=== PATIENT | female | born 1940 | race Caucasian/White ===

== ENCOUNTER 2021-01-11 15:22 | Inpatient (IN) | payer BC ==
[~2021-01-11] VITALS: Ht 162.6 cm; Wt 78.0 kg
[2021-01-11] MEDS ORDERED: SODIUM CHLORIDE 0.9% 1000ML BAG (SEPSIS BOLUS) IV ONE (15:45)
[2021-01-11] MEDS ORDERED: CEFTRIAXONE 1 G PREMIX 50 ML IV ONE (15:45)
[2021-01-11] MEDS ORDERED: AZITHROMYCIN 500MG/250ML 250 ML IV ONE (15:45)
[2021-01-11 16:21] LABS: BASOPHILS % 0.3 % (0.0-2.0); HEMATOCRIT. 43.6 % (36.0-48.0); HEMOGLOBIN. 14.7 g/dL (12.0-16.0); LYMPHOCYTES % 10.9 % (20.0-50.0); MEAN CORPUSCULAR HEMOGLOBIN 29.3 pg (28.0-32.0); MEAN CORPUSCULAR VOLUME 86.9 fL (81.0-99.0); MEAN PLATELET VOLUME 8.5 fl (7.4-10.4); MONOCYTES % 3.3 % (2.0-8.0); NEUTROPHILS % 85.5 % (40.0-76.0); PLATELET 249 x1000/uL (130-400); RED BLOOD CELL COUNT 5.02 mill/uL (4.2-5.4); RED CELL DISTRIBUTION WIDTH 14.6 % (11.6-14.6)
[2021-01-11 16:41] LABS: CHLORIDE 104 mEq/L (98-107)
[2021-01-11] MEDS ORDERED: DEXAMETHASONE 10 MG/ML VIAL IV ONE (18:15)
[2021-01-11] MEDS ORDERED: ONDANSETRON HCL 4MG/2ML INJ IV PRN (19:15)
[2021-01-11] MEDS ORDERED: IPRATROPIUM/ALBUTEROL 0.5-3(2.5)MG/3ML NEB HHN PRN (19:15)
[2021-01-11] MEDS ORDERED: HYDROCODONE/ACETAMINOPHEN 5/325MG TABLET PO PRN (19:15)
[2021-01-11] MEDS ORDERED: ENOXAPARIN 40MG/0.4ML SYR SUBCUT SCH (20:00)
[2021-01-11 20:20] VITALS: BP 112/58
[2021-01-11 20:33] LABS: CLARITY URINE CLEAR (CLEAR); COLOR URINE YELLOW (YELLOW); KETONES URINE NEGATIVE (NEGATIVE); LEUKOCYTE ESTERASE URINE NEGATIVE (NEGATIVE); NITRITE URINE NEGATIVE (NEGATIVE); OCCULT BLOOD URINE NEGATIVE (NEGATIVE); PH URINE 5.5 (4.5-8.0); PROTEIN URINE TRACE (NEGATIVE); UROBILINOGEN URINE 0.2 E.U./dL (0.2-1.0)
[2021-01-11] MEDS: GUAIFENESIN 200MG/10ML SUGAR FREE UDC PO PRN (22:24)
[2021-01-12] VITALS: BP 118/62
[2021-01-12] MEDS ORDERED: APIX5TAB PO (01:38)
[2021-01-12] MEDS ORDERED: LORA2ORA5 PO (01:38)
[2021-01-12 03:59] VITALS: BP 128/66
[2021-01-12] MEDS: GUAIFENESIN 200MG/10ML SUGAR FREE UDC PO PRN (05:22)
[2021-01-12 07:21] LABS: BASOPHILS % 0.1 % (0.0-2.0); HEMATOCRIT. 42.2 % (36.0-48.0); HEMOGLOBIN. 14.1 g/dL (12.0-16.0); LYMPHOCYTES % 9.5 % (20.0-50.0); MEAN CORPUSCULAR HEMOGLOBIN 29.4 pg (28.0-32.0); MEAN CORPUSCULAR VOLUME 87.9 fL (81.0-99.0); MEAN PLATELET VOLUME 8.8 fl (7.4-10.4); NEUTROPHILS % 87.4 % (40.0-76.0); PLATELET 271 x1000/uL (130-400); RED CELL DISTRIBUTION WIDTH 14.8 % (11.6-14.6)
[2021-01-12 07:49] LABS: CHLORIDE 113 mEq/L (98-107)
[2021-01-12 08:00] VITALS: BP 121/65
[2021-01-12] MEDS: DEXAMETHASONE 10 MG/ML VIAL IV SCH (09:19)
[2021-01-12] MEDS ORDERED: NALOXONE HCL 0.4MG/ML VIAL IV PRN (11:00)
[2021-01-12 12:00] VITALS: BP 113/54
[2021-01-12] MEDS: ENOXAPARIN 80MG/0.8ML SYR SUBCUT SCH ×2 (13:34→20:16)
[2021-01-12] MEDS: BENZONATATE 100MG CAPSULE PO PRN ×2 (13:35→21:38)
[2021-01-12] MEDS: ALBUTEROL 6.7GM HFA INHALER ORI PRN (13:35)
[2021-01-12] MEDS: CEFTRIAXONE 1,000 MG in DEXTROSE 5% WATER 50 ML IV SCH (13:35)
[2021-01-12] MEDS: AZITHROMYCIN 500 MG in DEXT 5% WATER 250 ML IV SCH (14:06)
[2021-01-12 16:00] VITALS: BP 121/65
[2021-01-12] MEDS ORDERED: CEFTRIAXONE 1,000 MG in DEXTROSE 5% WATER 50 ML IV SCH (17:00)
[2021-01-12] MEDS ORDERED: AZITHROMYCIN 500 MG in DEXT 5% WATER 250 ML IV SCH (18:00)
[2021-01-12 20:00] VITALS: BP 117/61
[2021-01-12] MEDS: GUAIFENESIN 600MG ER TABLET PO SCH (20:16)
[2021-01-13] VITALS: BP 111/58
[2021-01-13 04:00] VITALS: BP 110/60
[2021-01-13 06:14] LABS: HEMOGLOBIN. 13.4 g/dL (12.0-16.0); LYMPHOCYTES % 7.5 % (20.0-50.0); MEAN CORPUSCULAR HEMOGLOBIN 29.2 pg (28.0-32.0); MEAN CORPUSCULAR VOLUME 87.2 fL (81.0-99.0); MEAN PLATELET VOLUME 8.8 fl (7.4-10.4); MONOCYTES % 4.8 % (2.0-8.0); NEUTROPHILS % 87.7 % (40.0-76.0); PLATELET 329 x1000/uL (130-400); RED BLOOD CELL COUNT 4.58 mill/uL (4.2-5.4); RED CELL DISTRIBUTION WIDTH 14.8 % (11.6-14.6)
[2021-01-13 06:18] LABS: INR 1.2; PROTHROMBIN TIME 12.4 sec (9.6-11.0)
[2021-01-13 06:39] LABS: CHLORIDE 113 mEq/L (98-107)
[2021-01-13 08:00] VITALS: BP 121/61
[2021-01-13] MEDS: GUAIFENESIN 600MG ER TABLET PO SCH ×2 (08:16→20:49)
[2021-01-13] MEDS: ENOXAPARIN 80MG/0.8ML SYR SUBCUT SCH ×2 (08:16→20:49)
[2021-01-13] MEDS: BENZONATATE 100MG CAPSULE PO PRN (08:17)
[2021-01-13] MEDS: DEXAMETHASONE 10 MG/ML VIAL IV SCH (08:17)
[2021-01-13 12:00] VITALS: BP 120/64
[2021-01-13] MEDS: CEFTRIAXONE 1,000 MG in DEXTROSE 5% WATER 50 ML IV SCH (13:11)
[2021-01-13] MEDS: AZITHROMYCIN 500 MG in DEXT 5% WATER 250 ML IV SCH (14:20)
[2021-01-13 16:00] VITALS: BP 129/64
[2021-01-13 20:00] VITALS: BP 128/61
[2021-01-14] VITALS: BP 133/52
[2021-01-14 04:00] VITALS: BP 134/58
[2021-01-14 07:18] LABS: BASOPHILS % 0.1 % (0.0-2.0); HEMATOCRIT. 40.4 % (36.0-48.0); HEMOGLOBIN. 13.5 g/dL (12.0-16.0); LYMPHOCYTES % 9.4 % (20.0-50.0); MEAN CORPUSCULAR HEMOGLOBIN 29.2 pg (28.0-32.0); MEAN CORPUSCULAR VOLUME 87.3 fL (81.0-99.0); MEAN PLATELET VOLUME 9.4 fl (7.4-10.4); MONOCYTES % 6.5 % (2.0-8.0); PLATELET 430 x1000/uL (130-400); RED BLOOD CELL COUNT 4.62 mill/uL (4.2-5.4); RED CELL DISTRIBUTION WIDTH 14.9 % (11.6-14.6)
[2021-01-14 07:33] LABS: CHLORIDE 112 mEq/L (98-107)
[2021-01-14 07:41] LABS: LDL CHOLESTEROL 96 mg/dL (5-100)
[2021-01-14 07:43] LABS: HDL CHOLESTEROL 34 mg/dL (40-59)
[2021-01-14 08:00] VITALS: BP 128/67
[2021-01-14] MEDS: ENOXAPARIN 80MG/0.8ML SYR SUBCUT SCH ×2 (08:27→21:20)
[2021-01-14] MEDS: GUAIFENESIN 600MG ER TABLET PO SCH ×2 (08:27→21:00)
[2021-01-14] MEDS: DEXAMETHASONE 10 MG/ML VIAL IV SCH (08:27)
[2021-01-14 12:00] VITALS: BP 158/56
[2021-01-14] MEDS: CEFTRIAXONE 1,000 MG in DEXTROSE 5% WATER 50 ML IV SCH (12:05)
[2021-01-14] MEDS: AZITHROMYCIN 500 MG in DEXT 5% WATER 250 ML IV SCH (13:12)
[2021-01-14 16:00] VITALS: BP 154/64
[2021-01-14] MEDS: LORAZEPAM 0.5MG TABLET PO PRN (18:26)
[2021-01-14 20:00] VITALS: BP 130/62
[2021-01-15] VITALS: BP 126/58
[2021-01-15] MEDS: LORAZEPAM 0.5MG TABLET PO PRN ×2 (00:50→11:08)
[2021-01-15 04:00] VITALS: BP 128/64
[2021-01-15 06:53] LABS: BASOPHILS % 0.1 % (0.0-2.0); EOSINOPHILS % 0.1 % (0.0-5.0); HEMATOCRIT. 40.5 % (36.0-48.0); HEMOGLOBIN. 13.6 g/dL (12.0-16.0); LYMPHOCYTES % 13.4 % (20.0-50.0); MEAN CORPUSCULAR HEMOGLOBIN 29.1 pg (28.0-32.0); MEAN CORPUSCULAR VOLUME 86.7 fL (81.0-99.0); MEAN PLATELET VOLUME 8.9 fl (7.4-10.4); MONOCYTES % 5.5 % (2.0-8.0); NEUTROPHILS % 80.9 % (40.0-76.0); PLATELET 480 x1000/uL (130-400); RED BLOOD CELL COUNT 4.67 mill/uL (4.2-5.4); RED CELL DISTRIBUTION WIDTH 14.4 % (11.6-14.6)
[2021-01-15 07:02] LABS: CHLORIDE 112 mEq/L (98-107)
[2021-01-15 08:00] VITALS: BP 121/68
[2021-01-15] MEDS: DEXAMETHASONE 10 MG/ML VIAL IV SCH (08:02)
[2021-01-15] MEDS: ENOXAPARIN 80MG/0.8ML SYR SUBCUT SCH ×2 (08:03→20:11)
[2021-01-15] MEDS: BENZONATATE 100MG CAPSULE PO PRN (08:08)
[2021-01-15] MEDS: GUAIFENESIN 600MG ER TABLET PO SCH ×2 (09:25→20:11)
[2021-01-15 12:00] VITALS: BP 109/77
[2021-01-15] MEDS: CEFTRIAXONE 1,000 MG in DEXTROSE 5% WATER 50 ML IV SCH (13:03)
[2021-01-15] MEDS: AZITHROMYCIN 500 MG in DEXT 5% WATER 250 ML IV SCH (14:04)
[2021-01-15 16:00] VITALS: BP 126/80
[2021-01-15 20:03] VITALS: BP 120/78
[2021-01-16] VITALS: BP 130/70
[2021-01-16] MEDS: ALBUTEROL 6.7GM HFA INHALER ORI PRN ×2 (04:04→14:56)
[2021-01-16 08:00] VITALS: BP 129/67
[2021-01-16] MEDS: GUAIFENESIN 600MG ER TABLET PO SCH ×2 (08:59→20:37)
[2021-01-16] MEDS: ENOXAPARIN 80MG/0.8ML SYR SUBCUT SCH ×2 (09:00→20:37)
[2021-01-16] MEDS: DEXAMETHASONE 10 MG/ML VIAL IV SCH (09:09)
[2021-01-16 12:00] VITALS: BP 133/76
[2021-01-16] MEDS: CEFTRIAXONE 1,000 MG in DEXTROSE 5% WATER 50 ML IV SCH (14:50)
[2021-01-16 15:46] VITALS: BP 123/57
[2021-01-16 19:43] VITALS: BP 116/40
[2021-01-17] VITALS: BP 129/66
[2021-01-17 04:00] VITALS: BP 136/60
[2021-01-17 08:00] VITALS: BP 136/67
[2021-01-17] MEDS: DOCUSATE SODIUM 100MG CAPSULE PO PRN (08:26)
[2021-01-17] MEDS: GUAIFENESIN 600MG ER TABLET PO SCH ×2 (08:26→21:07)
[2021-01-17] MEDS: DEXAMETHASONE 10 MG/ML VIAL IV SCH (08:26)
[2021-01-17] MEDS: BENZONATATE 100MG CAPSULE PO PRN (08:27)
[2021-01-17] MEDS: ENOXAPARIN 80MG/0.8ML SYR SUBCUT SCH ×2 (08:27→21:07)
[2021-01-17] MEDS: ALBUTEROL 6.7GM HFA INHALER ORI PRN ×2 (08:47→15:55)
[2021-01-17 11:39] LABS: BG CARBOXYHEMOGLOBIN 0.3 % (0.5-1.5); BG DEOXYHEMOGLOBIN 5.8 % (0.0-5.0); BG HCO3 ACT 19.6 mmol/L (22.0-26.0); BG METHEMOGLOBIN 0.2 % (0.0-1.5); BG OXYGEN SATURATION 94.2 % (92.0-98.5); BG OXYHEMOGLOBIN 93.7 % (94.0-97.0); BG PCO2 26.5 mmHg (35.0-45.0); BG PH 7.487 (7.350-7.450); BG PO2 68.6 mmHg (75.0-100.0); BG SAMPLE SITE RIGHT RADIAL; BG TOTAL HEMOGLOBIN 15.5 g/dL (12.0-18.0); BG VENT MODE MASK - NRB
[2021-01-17 12:00] VITALS: BP 126/69
[2021-01-17] MEDS: LORAZEPAM 2MG/ML CPJ IV PRN (15:47)
[2021-01-17 16:00] VITALS: BP 131/66
[2021-01-17] MEDS: SODIUM CHLORIDE 0.9% 1,000 ML IV SCH (17:29)
[2021-01-17 20:00] VITALS: BP 128/68
[2021-01-18] VITALS: BP 144/64
[2021-01-18 04:00] VITALS: BP 145/72
[2021-01-18 06:58] LABS: HEMATOCRIT. 43.1 % (36.0-48.0); HEMOGLOBIN. 14.1 g/dL (12.0-16.0); MEAN CORPUSCULAR VOLUME 88.8 fL (81.0-99.0); MEAN PLATELET VOLUME 8.2 fl (7.4-10.4); PLATELET 603 x1000/uL (130-400); RED BLOOD CELL COUNT 4.85 mill/uL (4.2-5.4); RED CELL DISTRIBUTION WIDTH 15.3 % (11.6-14.6)
[2021-01-18] MEDS: SODIUM CHLORIDE 0.9% 1,000 ML IV SCH ×2 (07:01→22:12)
[2021-01-18 07:06] LABS: CHLORIDE 116 mEq/L (98-107)
[2021-01-18 08:00] VITALS: BP 123/81
[2021-01-18] MEDS: BENZONATATE 100MG CAPSULE PO PRN (08:02)
[2021-01-18] MEDS: DOCUSATE SODIUM 100MG CAPSULE PO PRN (08:02)
[2021-01-18] MEDS: DEXAMETHASONE 10 MG/ML VIAL IV SCH (08:02)
[2021-01-18] MEDS: ALBUTEROL 6.7GM HFA INHALER ORI PRN ×2 (08:03→13:37)
[2021-01-18] MEDS: ENOXAPARIN 80MG/0.8ML SYR SUBCUT SCH ×2 (08:03→22:06)
[2021-01-18] MEDS: GUAIFENESIN 600MG ER TABLET PO SCH ×2 (08:23→22:06)
[2021-01-18 12:00] VITALS: BP 131/77
[2021-01-18] MEDS: LORAZEPAM 2MG/ML CPJ IV PRN ×2 (12:48→22:12)
[2021-01-18 13:31] LABS: PLATELET ESTIMATE INCREASED
[2021-01-18 16:00] VITALS: BP 129/68
[2021-01-18 20:00] VITALS: BP 168/58
[2021-01-18] MEDS: ACETAMINOPHEN 325MG TABLET PO PRN (22:06)
[2021-01-18] MEDS: CLONIDINE 0.1MG TABLET PO PRN (22:11)
[2021-01-19] VITALS: BP 126/58
[2021-01-19 04:00] VITALS: BP 145/89
[2021-01-19 08:00] VITALS: BP 147/66
[2021-01-19] MEDS: GUAIFENESIN 600MG ER TABLET PO SCH ×2 (08:15→20:48)
[2021-01-19] MEDS: ENOXAPARIN 80MG/0.8ML SYR SUBCUT SCH ×2 (08:15→20:49)
[2021-01-19] MEDS: DEXAMETHASONE 10 MG/ML VIAL IV SCH (08:15)
[2021-01-19] MEDS: SODIUM CHLORIDE 0.9% 1,000 ML IV SCH ×2 (08:16→22:49)
[2021-01-19] MEDS: ACETAMINOPHEN 325MG TABLET PO PRN ×2 (11:53→20:49)
[2021-01-19 12:00] VITALS: BP 154/78
[2021-01-19 16:00] VITALS: BP 125/63
[2021-01-19 20:00] VITALS: BP 133/68
[2021-01-20] VITALS: BP 114/78
[2021-01-20 04:00] VITALS: BP 159/83
[2021-01-20 08:00] VITALS: BP 149/76
[2021-01-20] MEDS: GUAIFENESIN 600MG ER TABLET PO SCH ×2 (08:09→20:30)
[2021-01-20] MEDS: DEXAMETHASONE 10 MG/ML VIAL IV SCH (08:09)
[2021-01-20] MEDS: ACETAMINOPHEN 325MG TABLET PO PRN (08:09)
[2021-01-20] MEDS: ENOXAPARIN 80MG/0.8ML SYR SUBCUT SCH ×2 (08:09→20:30)
[2021-01-20 12:00] VITALS: BP 143/76
[2021-01-20] MEDS: SODIUM CHLORIDE 0.9% 1,000 ML IV SCH (12:33)
[2021-01-20 16:00] VITALS: BP 141/79
[2021-01-20 20:00] VITALS: BP 157/73
[2021-01-21] VITALS (69 sets, daily range): BP systolic 66–160; BP diastolic 44–111
[2021-01-21] MEDS: ACETAMINOPHEN 325MG TABLET PO PRN ×2 (00:05→16:24)
[2021-01-21] MEDS: SODIUM CHLORIDE 0.9% 1,000 ML IV SCH (01:20)
[2021-01-21] MEDS: CLONIDINE 0.1MG TABLET PO PRN (04:14)
[2021-01-21 08:26] LABS: HEMATOCRIT. 46.4 % (36.0-48.0); MEAN CORPUSCULAR HEMOGLOBIN 28.8 pg (28.0-32.0); MEAN CORPUSCULAR VOLUME 88.9 fL (81.0-99.0); MEAN PLATELET VOLUME 8.5 fl (7.4-10.4); PLATELET 493 x1000/uL (130-400); RED BLOOD CELL COUNT 5.21 mill/uL (4.2-5.4); RED CELL DISTRIBUTION WIDTH 15.1 % (11.6-14.6)
[2021-01-21 08:34] LABS: CHLORIDE 118 mEq/L (98-107)
[2021-01-21] MEDS ORDERED: ETOMIDATE 2MG/ML 10ML VIAL IV ONE (09:08)
[2021-01-21] MEDS ORDERED: SUCCINYLCHOLINE CHLORIDE 200MG/10ML IV ONE (09:08)
[2021-01-21] MEDS: ENOXAPARIN 80MG/0.8ML SYR SUBCUT SCH ×2 (10:28→22:37)
[2021-01-21] MEDS: GUAIFENESIN 600MG ER TABLET PO SCH ×2 (10:28→21:00)
[2021-01-21] MEDS: DEXAMETHASONE 10 MG/ML VIAL IV SCH (10:28)
[2021-01-21 11:13] LABS: BG BASE EXCESS -5.7 mmol/L (-2.0-2.0); BG CARBOXYHEMOGLOBIN 0.3 % (0.5-1.5); BG DEOXYHEMOGLOBIN 17.5 % (0.0-5.0); BG FRACTION INSPIRED OXYGEN 100; BG HCO3 ACT 18.8 mmol/L (22.0-26.0); BG METHEMOGLOBIN 0.7 % (0.0-1.5); BG OXYGEN SATURATION 82.3 % (92.0-98.5); BG OXYHEMOGLOBIN 81.5 % (94.0-97.0); BG PCO2 34.5 mmHg (35.0-45.0); BG PH 7.355 (7.350-7.450); BG PO2 48.9 mmHg (75.0-100.0); BG SAMPLE SITE RIGHT RADIAL; BG TOTAL HEMOGLOBIN 16.3 g/dL (12.0-18.0); BG VENT MODE MASK - BIPAP
[2021-01-21] MEDS ORDERED: IPRATROPIUM/ALBUTEROL 0.5-3(2.5)MG/3ML NEB HHN PRN (11:30)
[2021-01-21] MEDS: PROPOFOL 10MG/ML 100ML 100 ML IV PRN ×2 (12:19→15:29)
[2021-01-21] MEDS: SODIUM CHLORIDE 0.45% 1,000 ML IV SCH (12:20)
[2021-01-21] MEDS: PHENYLEPHRINE 100 MG in DEXT 5% WATER 240 ML IV PRN (12:39)
[2021-01-21] MEDS: FENTANYL CITRATE/PF 2,500 MCG in SODIUM CHLORIDE 0.9% 200 ML IV PRN (12:42)
[2021-01-21 12:50] LABS: BG BASE EXCESS -7.5 mmol/L (-2.0-2.0); BG CARBOXYHEMOGLOBIN 0.3 % (0.5-1.5); BG DEOXYHEMOGLOBIN 19.5 % (0.0-5.0); BG FRACTION INSPIRED OXYGEN 100; BG HCO3 ACT 18.6 mmol/L (22.0-26.0); BG METHEMOGLOBIN 0.7 % (0.0-1.5); BG OXYGEN SATURATION 80.3 % (92.0-98.5); BG OXYHEMOGLOBIN 79.5 % (94.0-97.0); BG PCO2 39.8 mmHg (35.0-45.0); BG PH 7.288 (7.350-7.450); BG PO2 49.7 mmHg (75.0-100.0); BG SAMPLE SITE RIGHT RADIAL; BG TOTAL HEMOGLOBIN 15.2 g/dL (12.0-18.0); BG VENT MODE VENT - AC
[2021-01-21] MEDS ORDERED: LIDOCAINE HCL 1% 10 MG/ML 10ML VIAL ONE (13:24)
[2021-01-21 14:20] LABS: PLATELET ESTIMATE INCREASED
[2021-01-21] MEDS: MIDAZOLAM HCL 100 MG in SODIUM CHLORIDE 0.9% 80 ML IV PRN (16:24)
[2021-01-22] VITALS (79 sets, daily range): BP systolic 56–128; BP diastolic 34–79
[2021-01-22] MEDS: IPRATROPIUM/ALBUTEROL 0.5-3(2.5)MG/3ML NEB HHN SCH ×2 (00:54→08:35)
[2021-01-22] MEDS: FENTANYL CITRATE/PF 2,500 MCG in SODIUM CHLORIDE 0.9% 200 ML IV PRN (02:39)
[2021-01-22] MEDS: SODIUM CHLORIDE 0.45% 1,000 ML IV SCH (02:39)
[2021-01-22] MEDS: PHENYLEPHRINE 100 MG in DEXT 5% WATER 240 ML IV PRN (05:17)
[2021-01-22 05:32] LABS: HEMATOCRIT. 39.2 % (36.0-48.0); HEMOGLOBIN. 12.7 g/dL (12.0-16.0); MEAN CORPUSCULAR HEMOGLOBIN 29.3 pg (28.0-32.0); MEAN CORPUSCULAR VOLUME 90.2 fL (81.0-99.0); MEAN PLATELET VOLUME 8.6 fl (7.4-10.4); PLATELET 369 x1000/uL (130-400); RED BLOOD CELL COUNT 4.35 mill/uL (4.2-5.4); RED CELL DISTRIBUTION WIDTH 15.6 % (11.6-14.6)
[2021-01-22 05:49] LABS: CHLORIDE 118 mEq/L (98-107)
[2021-01-22] MEDS ORDERED: MULTIVITAMINS,THER W-MINERALS TABLET PO SCH (09:00)
[2021-01-22] MEDS ORDERED: PANTOPRAZOLE SODIUM 40 MG/VIAL IV SCH (09:00)
[2021-01-22] MEDS: GUAIFENESIN 600MG ER TABLET PO SCH (09:00)
[2021-01-22] MEDS: MIDAZOLAM HCL 100 MG in SODIUM CHLORIDE 0.9% 80 ML IV PRN (09:12)
[2021-01-22 09:48] LABS: BG BASE EXCESS -2.5 mmol/L (-2.0-2.0); BG CARBOXYHEMOGLOBIN 0.6 % (0.5-1.5); BG DEOXYHEMOGLOBIN 22.8 % (0.0-5.0); BG FRACTION INSPIRED OXYGEN 100; BG HCO3 ACT 23.9 mmol/L (22.0-26.0); BG METHEMOGLOBIN 0.2 % (0.0-1.5); BG OXYHEMOGLOBIN 76.4 % (94.0-97.0); BG PCO2 47.5 mmHg (35.0-45.0); BG PH 7.319 (7.350-7.450); BG PO2 42.2 mmHg (75.0-100.0); BG SAMPLE SITE RIGHT RADIAL; BG TOTAL HEMOGLOBIN 13.5 g/dL (12.0-18.0); BG VENT MODE VENT - AC
[2021-01-22] MEDS: DEXAMETHASONE 10 MG/ML VIAL IV SCH (10:03)
[2021-01-22] MEDS: ACETAMINOPHEN 325MG TABLET PO PRN (10:03)
[2021-01-22 12:37] LABS: PLATELET ESTIMATE NORMAL
[2021-01-22] MEDS ORDERED: MORPHINE SULFATE 250 MG in DEXT 5% WATER 240 ML IV PRN (12:45)
[2021-01-22] MEDS ORDERED: LORAZEPAM 2MG/ML CPJ IV PRN (12:45)
== END 2021-01-22 20:13 | DRG 871 ==
LOC: ER 15:22 → 7WST 18:45 → ENRESERV 19:54 → MICUNO 01-21 08:46
PROVIDERS: ADMIT Internal Medicine; ATTEND Internal Medicine
PROC: 5A1945Z Respiratory Ventilation, 24-96 Consecutive Hours (ICD-10-PCS; principal; 2021-01-20)
PROC: 0BH17EZ Insertion of Endotracheal Airway into Trachea, Via Natural or Artificial Opening (ICD-10-PCS; 2021-01-20)
PROC: 05HY33Z Insertion of Infusion Device into Upper Vein, Percutaneous Approach (ICD-10-PCS; 2021-01-21)
PROC: B54MZZA Ultrasonography of Right Upper Extremity Veins, Guidance (ICD-10-PCS; 2021-01-21)
PROC: 5A09357 Assistance with Respiratory Ventilation, Less than 24 Consecutive Hours, Continuous Positive Airway Pressure (ICD-10-PCS; 2021-01-21)
DX: A41.89 Other specified sepsis (principal); J12.82 Pneumonia due to coronavirus disease 2019; J96.01 Acute respiratory failure with hypoxia; G92.8 Other toxic encephalopathy; U07.1 COVID-19; J15.9 Unspecified bacterial pneumonia; J93.9 Pneumothorax, unspecified; M85.80 Other specified disorders of bone density and structure, unspecified site; E78.5 Hyperlipidemia, unspecified; Z51.5 Encounter for palliative care; Z78.1 Physical restraint status; Z79.01 Long term (current) use of anticoagulants; Z85.3 Personal history of malignant neoplasm of breast; Z90.49 Acquired absence of other specified parts of digestive tract; Z91.19 Patient's noncompliance with other medical treatment and regimen; Z92.3 Personal history of irradiation; Z86.711 Personal history of pulmonary embolism
CPT/HCPCS: 36415; 36600; 71045; 71250; 76937; 80048; 80053; 80061; 81003; 82375; 82728; 82805; 82962; 83605; 84145; 84478; 84484; 85025; 86140; 87426; 93005; 99285; A6261; C1725; C1893; C9113; J0330; J0456; J0696; J1100; J1650; J2060; J2250; J2370; J2405; J2704; J3010; J3490; J7030; J7040; J7050; J7060; U0003; U0005